=== PATIENT | female | born 1980 | race Caucasian/White ===

== ENCOUNTER 2024-01-17 21:10 | Emergency (ER) | payer OTHER, SELFPAY ==
[2024-01-17 21:15] VITALS: BP 171/89; BMI 32.1
[2024-01-17 23:12] VITALS: BMI 33.6
--- NOTE | 2024-01-17 23:22 | ED.GENMED ---
History of Present Illness
General
Chief Complaint: Chest Problem
Source: patient and spouse
Exam Limitations: none
Time Seen by Provider: 01/17/24 22:59
Nursing documentation reviewed up to this point in time: agreed with
History of Present Illness
History of Present Illness:
43-year-old female left-sided chest pain sharp worse with deep breath onset few days ago no rash no fever no hemoptysis no calf pain no personal history of DVT PE, although interested her son as a teenager is on chronic anticoagulation for DVT had
blood work told he did not have any congenital blood clotting issues, patient denies recent car trips, no falls
Past History
Past History
ED Past Medical History: Negative MT
Social History
Tobacco: Non-smoker
Alcohol: None
Drug: None
Personal:
Living: with family
Employment: Employed
Family History
Family History: Other (Son with DVT as a teenager)
Review of Systems
Review of Systems
All Other Systems: Not applicable
Constitutional: Denies fever or fatigue
Respiratory: Denies cough or trouble breathing
Cardiac: Reports chest pain (Left-sided chest pain sharp with deep breath)
ABD/GI: Reports no symptoms
: Reports no symptoms
Musculoskeletal: Reports no symptoms
Skin: Reports no symptoms
Neurological: Reports no symptoms
Psychiatric: Reports no symptoms
Phy Exam
Physical Exam
Physical Exam:
Physical Exam
General: no apparent distress, not acutely ill
Neck: No jaundice
Heart: s1/s2 regular rate and rhythm, no murmur. equal radial pulses.
Lungs: no acute respiratory distress. clear bilaterally
Abdomen: Nontender
Neuro: alert and oriented. no focal neurological deficits
Skin: no rash
Psychiatric: well kept. interactive and cooperative
Extremities: No calf pain
Course
Orders/Labs/Results
Orders:
Orders
01/17/24 21:16
EKG [Electrocardiogram (*1)] Urgent
Reason for Study: Palpitations
01/17/24 21:17
EKG- Treatment ONCE
01/17/24 23:09
Ketorolac [Toradol] 30 mg IV NOW STA
01/17/24 23:21
Complete Blood Count/With Diff Urgent
Comprehensive Metabolic Panel Urgent
D-Dimer Urgent
Lipase Urgent
Magnesium Urgent
Troponin I Urgent
01/18/24 00:00
CR Chest - 2 Views Urgent
Reason For Exam: chest pain
01/18/24 00:56
Dexamethasone Sod Phosphate [Decadron] 10 mg IV NOW STA
01/17/24 23:21
01/17/24 23:21
Vital Signs
Initial and Last Documented VS:
Initial Vital Signs
Pulse Resp BP Pulse Ox
65 18 171/89 98
01/17/24 21:15 01/17/24 21:15 01/17/24 21:15 01/17/24 21:15
Last Documented Vital Signs
Pulse Resp BP Pulse Ox
64 16 114/74 98
01/18/24 00:00 01/18/24 00:00 01/18/24 00:00 01/18/24 00:00
MDM/Problems Addressed
Differential Diagnosis Includes:
Pleurisy PE less likely ACS
*Radiology
Radiology exam reviewed: preliminary read by ED provider
*Pulse Oximetry
Patient hypoxic: no
*EKG
Interpreted by ED Provider?: Yes
Interpretation: normal
Comparison EKG: no comparison EKG present
Heart Rate: 78
Rate: normal
Rhythm: sinus
QRS Pattern: normal QRS
Ischemia: no ischemia
*Hospice Coordinator Interpretation
Rate: normal
Interpretation: normal
Heart Rate: 78
Rhythm: sinus
*Critical Care Note
Total Time (30-74mins, 75-104mins- exclusive of procedures): Not Applicable
Data Reviewed
Source: patient and spouse
Update Note
Update Note:
Update D-dimer troponin noted chest x-ray noted no obvious pneumothorax
Patient is comfortable treated short course of steroids
ED Attending Note
-
Portions of this chart may have been created with voice recognition software.� Occasional wrong word or��sound alike� substitutions may have occurred due to the inherent limitations of voice recognition software.
Discharge Plan
Departure
Patient Disposition: Home (Routine Discharge)
Date of Disposition: 01/18/24
Time of Disposition: 00:56
Patient with high blood pressure during this ER visit?: No
Condition: Good
Discharge Problem:
Pleurisy
Prescriptions:
New
methylprednisolone [Medrol (Armaan)] 4 mg tablets,dose pack
See Rx Instructions .ROUTE .COMPLEX Qty: 21 0RF
Rx Instructions:
orally per package directions
Referrals:
NONE,* [Family Provider] -
Interventions
Interventions:
*Risk Screen - Suicide Last Done: 01/17/24 21:15
*General Assessment Last Done: 01/17/24 23:12
*Neglect/Abuse Screening Last Done: 01/17/24 21:15
ED- Fall Risk Assessment Last Done: 01/17/24 23:35
*ED COVID-19 Vaccine History Last Done: 01/17/24 23:12
ED- Cardiac Assessment Last Done: 01/17/24 23:35
ED- Pulmonary Assessment Last Done: 01/17/24 23:35
Discharge Date and Time
Print Language: DANISH
[2024-01-17 23:28] VITALS: BP 118/78
[2024-01-17] MEDS: TORADOL 30 MG IV (23:30)
--- NOTE | 2024-01-17 23:36 | EDRN ---
Pt woke with pain in L back on Thursday morning. Pain now goes through to L chest and pt complains of 'lung pain.' Pain worse with deep inspiration. Pt denies abd pain, sob, n/v, diaphoresis, fever/chills/cough, weakness, dizziness, swelling,
recent travel/injury. Pt came to ED tonight because she was looking up symptoms on line and was concerned. Pt says her son had extensive blood clots in both legs, trapped by narrow ivc from going into lungs. No known cause for blood clots and pt
is on a blood thinner for life. Will hold on CXR until d-dimer returns in case pt needs CT per Dr Baker, pt aware.
[2024-01-17 23:40] LABS: % Basophils 0.3 % (0-2); % Eosinophils 2.1 % (0-6); % Immature Granulocytes 0.1 % (0-0.5); % Lymphocytes 31.7 % (20.5-51.1); % Monocytes 6.3 % (1.7-9.3); % Neutrophils 59.5 % (42.2-75.2); Absolute Eosinophils 0.2 10^3/uL (0-0.7); Absolute Lymphocytes 2.4 10^3/uL (1.2-3.4); Absolute Monocytes 0.5 10^3/uL (0.1-0.6); Absolute Neutrophils 4.6 10^3/uL (1.4-6.5); Hematocrit 38.7 % (37.0-47.0); Hemoglobin 13.2 g/dL (12.0-16.0); Mean Corp Hgb Conc. 34.1 g/dL (33.0-37.0); Mean Corpuscular Hgb 28.4 pg (27.0-31.0); Mean Corpuscular Volume 83.4 fL (81.0-99.0); Mean Platelet Volume 9.5 fL (7.4-10.4); Nucleated Red Blood Cells % 0 %; Platelet Count 305 10^3/uL (130-400); Red Blood Cell Count 4.64 10^6/uL (4.20-5.40); White Blood Cell Count 7.7 10^3/uL (4.8-10.8)
[2024-01-17 23:50] LABS: ALT (SGPT) 16 U/L (0-35); AST (SGOT) 24 U/L (14-36); Albumin 4.3 g/dl (3.5-5.0); Alkaline Phosphatase 80 U/L (38-126); Blood Urea Nitrogen 13 mg/dl (7-17); Calcium 9.3 mg/dl (8.4-10.2); Carbon Dioxide 27 mmol/L (22-30); Chloride 106 mmol/L (98-107); Estimated Creatinine Clearance 107 ml/min; Glucose 92 mg/dl (70-99); Lipase 76 U/L (23-300); Potassium 4.2 mmol/L (3.5-5.1); Sodium 138 mmol/L (135-145); Total Bilirubin 0.5 mg/dl (0.2-1.3); Total Protein 7.2 g/dl (6.3-8.2); eGFR > 60.00
[2024-01-17 23:58] LABS: D-Dimer 0.32 ug/mlFEU (0.00-0.50)
[2024-01-18] VITALS: BP 114/74
[2024-01-18 00:01] LABS: Troponin I < 0.012 ng/ml
[2024-01-18 01:00] VITALS: BP 106/67
[2024-01-18] MEDS: DECADRON 10 MG IV (01:06)
== END 2024-01-18 01:15 | disposition home or self-care (01) ==
LOC: EMR 21:10
PROVIDERS: EMERGENCY PHYSICIAN Emergency Medicine
DX: R09.1 Pleurisy (principal)
CPT/HCPCS: 99285; 96374; 96375; 71046; 80053; 83690; 83735; 84484; 85025; 85379; 93005